=== PATIENT | male | born 1995 | race Caucasian/White ===

== ENCOUNTER 2020-06-20 12:47 | Inpatient (IN) | payer MEDICARE, MEDICAID ==
[~2020-06-20] VITALS: Ht 170.2 cm; Wt 64.7 kg
[2020-06-20] MEDS ORDERED: LEVE500T8 PO (14:45)
[2020-06-20 16:26] LABS: BASOPHILS % (AUTO) 0.6 % (0.0-2.0); EOSINOPHILS % (AUTO) 3.4 % (1.0-6.0); HEMATOCRIT 46.8 % (41-53); HEMOGLOBIN 16.2 g/dL (13.5-17.5); LYMPHOCYTES # (AUTO) 2.1 K/uL (1.0-4.8); LYMPHOCYTES % (AUTO) 26.8 % (22.0-44.0); MEAN CORPUSCULAR HEMOGLOBIN 32.2 pg (26.0-34.0); MEAN CORPUSCULAR HGB CONC 34.6 G/dL (31.0-37.0); MEAN CORPUSCULAR VOLUME 93 fL (80-100); MONOCYTES # (AUTO) 0.6 K/uL (0.1-1.0); MONOCYTES % (AUTO) 8.2 % (2.0-9.0); NEUTROPHILS # (AUTO) 4.8 K/uL (1.8-7.7); PLATELET COUNT (AUTO) 202 K/uL (150-450); RED BLOOD CELL COUNT(AUTO) 5.03 MIL/uL (4.50-5.90)
[2020-06-20 16:51] LABS: ANION GAP 4 mmol/L (8-16); CALCIUM, TOTAL 9.7 mg/dL (8.8-10.5); CARBON DIOXIDE 33 mmol/L (22-29); CHLORIDE 103 mmol/L (98-107); CREATININE 0.95 mg/dL (0.60-1.30); GLOMERULAR FILTR. RATE CALC > 60 mL/min (>60); GLUCOSE,RANDOM 90 mg/dL (70-110); POTASSIUM 3.9 mmol/L (3.5-5.1); SODIUM SERUM 140 mmol/L (136-145); UREA NITROGEN, BLOOD 13 mg/dL (7-18)
[2020-06-20 16:58] LABS: ALANINE AMINOTRANSFERASE 30 U/L (12-78); ALBUMIN 4.9 g/dL (3.4-5.0); ALKALINE PHOSPHATASE 66 U/L (46-116); ASPARTATE AMINOTRANSFERASE 25 U/L (15-37); TOTAL PROTEIN, SERUM 8.4 g/dL (6.4-8.2)
[2020-06-20 17:10] LABS: AMPHET/METH SCREEN,URINE NEGATIVE (NEGATIVE); BARBITURATE SCREEN, URINE NEGATIVE (NEGATIVE); BENZODIAZEPINES SCREEN,URINE NEGATIVE (NEGATIVE); CANNABINOID SCREEN,URINE NEGATIVE (NEGATIVE); COCAINE SCREEN,URINE NEGATIVE (NEGATIVE); METHADONE SCREEN, URINE NEGATIVE (NEGATIVE); OPIATE SCREEN,URINE NEGATIVE (NEGATIVE)
[2020-06-20 17:11] LABS: PHENCYCLIDINE SCREEN,URINE NEGATIVE (NEGATIVE)
[2020-06-20] MEDS ORDERED: HALOPERIDOL 5 MG TABLET PO PRN (19:30)
[2020-06-20] MEDS ORDERED: LORazepam 2 MG TABLET PO PRN (19:30)
[2020-06-20 22:34] VITALS: BP 111/71
[2020-06-21] MEDS ORDERED: BACITRACIN 28.4 GM OINTMENT TP PRN (07:45)
[2020-06-21] MEDS ORDERED: PETROLATUM,WHITE 28 GM JELLY TP PRN (07:45)
[2020-06-21] MEDS ORDERED: ALBUTEROL SULFATE HFA 90 MCG/PUFF 8 GM INHALER IH PRN (07:45)
[2020-06-21] MEDS ORDERED: MAG HYDROX/AL HYDROX/SIMETH ES 30 ML SUSPENSION UDCUP PO PRN (07:45)
[2020-06-21] MEDS ORDERED: IBUPROFEN 600 MG TABLET PO PRN (07:45)
[2020-06-21] MEDS ORDERED: ONDANSETRON HCL 4 MG TABLET PO PRN (07:45)
[2020-06-21] MEDS ORDERED: DOCUSATE SODIUM 100 MG CAPSULE PO PRN (07:45)
[2020-06-21] MEDS ORDERED: BENZOCAINE/MENTHOL LOZENGE MM PRN (07:45)
[2020-06-21] MEDS ORDERED: CloNIDine HCL 0.1 MG TABLET PO PRN (07:45)
[2020-06-21] MEDS ORDERED: MAGNESIUM HYDROXIDE SUSPENSION 30 ML UDCUP PO PRN (07:45)
[2020-06-21] MEDS ORDERED: LOPERAMIDE HCL 2 MG CAPSULE PO PRN (07:45)
[2020-06-21] MEDS ORDERED: OMEPRAZOLE 20 MG CAPSULE PO PRN (07:45)
[2020-06-21] MEDS ORDERED: ACETAMINOPHEN 325 MG TABLET PO PRN (07:45)
[2020-06-21 08:26] VITALS: BP 102/60
[2020-06-21] MEDS: LevETIRAcetam 500 MG TABLET PO SCH ×2 (08:47→16:28)
[2020-06-21 16:27] VITALS: BP 99/69
[2020-06-22] MEDS: LevETIRAcetam 500 MG TABLET PO SCH ×2 (08:29→16:14)
[2020-06-22] MEDS: QUEtiapine FUMARATE 25 MG TABLET PO SCH ×2 (08:29→16:14)
[2020-06-22 11:03] VITALS: BP 104/68
[2020-06-22 16:03] VITALS: BP 110/65
[2020-06-23] MEDS: LevETIRAcetam 500 MG TABLET PO SCH ×2 (08:23→17:10)
[2020-06-23] MEDS: QUEtiapine FUMARATE 25 MG TABLET PO SCH ×2 (08:24→17:10)
[2020-06-23 16:29] VITALS: BP 112/70
[2020-06-24 08:00] VITALS: BP 103/65
[2020-06-24] MEDS: QUEtiapine FUMARATE 25 MG TABLET PO SCH ×2 (08:18→17:28)
[2020-06-24] MEDS: LevETIRAcetam 500 MG TABLET PO SCH ×2 (08:18→17:28)
[2020-06-24 16:00] VITALS: BP 99/59
[2020-06-25] MEDS: LevETIRAcetam 500 MG TABLET PO SCH ×2 (09:10→16:27)
[2020-06-25] MEDS: QUEtiapine FUMARATE 25 MG TABLET PO SCH ×2 (09:10→16:28)
[2020-06-25 10:27] VITALS: BP 102/68
[2020-06-25 17:04] VITALS: BP 112/69
[2020-06-26] MEDS: QUEtiapine FUMARATE 25 MG TABLET PO SCH ×2 (08:29→16:12)
[2020-06-26] MEDS: DIVALPROEX SODIUM 500 MG DR TABLET PO SCH ×2 (08:29→16:12)
[2020-06-26] MEDS: LevETIRAcetam 500 MG TABLET PO SCH ×2 (08:29→16:12)
[2020-06-26 09:50] VITALS: BP 114/70
[2020-06-26 16:03] VITALS: BP 108/71
[2020-06-27 08:41] VITALS: BP 107/58
[2020-06-27] MEDS: LevETIRAcetam 500 MG TABLET PO SCH ×2 (09:39→16:00)
[2020-06-27] MEDS: DIVALPROEX SODIUM 500 MG DR TABLET PO SCH ×2 (09:39→16:00)
[2020-06-27] MEDS: QUEtiapine FUMARATE 25 MG TABLET PO SCH ×2 (09:40→16:00)
[2020-06-27 16:18] VITALS: BP 125/84
[2020-06-28] MEDS: DIVALPROEX SODIUM 500 MG DR TABLET PO SCH ×2 (07:57→16:40)
[2020-06-28] MEDS: LevETIRAcetam 500 MG TABLET PO SCH ×2 (07:57→16:40)
[2020-06-28] MEDS: QUEtiapine FUMARATE 25 MG TABLET PO SCH ×2 (07:57→16:40)
[2020-06-28 08:12] VITALS: BP 107/73
[2020-06-28 18:55] VITALS: BP 115/70
[2020-06-29] MEDS: QUEtiapine FUMARATE 25 MG TABLET PO SCH ×2 (08:10→16:21)
[2020-06-29] MEDS: DIVALPROEX SODIUM 500 MG DR TABLET PO SCH ×2 (08:10→16:21)
[2020-06-29] MEDS: LevETIRAcetam 500 MG TABLET PO SCH ×2 (08:10→16:21)
[2020-06-29 08:41] VITALS: BP 107/62
[2020-06-29 16:39] VITALS: BP 108/58
[2020-06-30] MEDS: QUEtiapine FUMARATE 25 MG TABLET PO SCH ×2 (08:00→16:11)
[2020-06-30] MEDS: DIVALPROEX SODIUM 500 MG DR TABLET PO SCH ×2 (08:00→16:11)
[2020-06-30] MEDS: LevETIRAcetam 500 MG TABLET PO SCH ×2 (08:00→16:11)
[2020-06-30 08:24] VITALS: BP 101/59
[2020-06-30 16:09] VITALS: BP 107/77
[2020-07-01 08:33] VITALS: BP 110/71
[2020-07-01] MEDS: LevETIRAcetam 500 MG TABLET PO SCH ×2 (09:15→16:26)
[2020-07-01] MEDS: QUEtiapine FUMARATE 25 MG TABLET PO SCH ×2 (09:15→16:26)
[2020-07-01] MEDS: DIVALPROEX SODIUM 500 MG DR TABLET PO SCH ×2 (09:15→16:25)
[2020-07-01 16:11] VITALS: BP 109/74
[2020-07-01] MEDS ORDERED: DIVA-112 PO (21:57)
[2020-07-01] MEDS ORDERED: QUET25TA PO (21:58)
[2020-07-02 08:28] VITALS: BP 103/63
[2020-07-02] MEDS: DIVALPROEX SODIUM 500 MG DR TABLET PO SCH (09:40)
[2020-07-02] MEDS: QUEtiapine FUMARATE 25 MG TABLET PO SCH (09:40)
[2020-07-02] MEDS: LevETIRAcetam 500 MG TABLET PO SCH (09:40)
[2020-07-02] MEDS ORDERED: LEVE500T53 PO (10:48)
== END 2020-07-02 14:12 | disposition home or self-care (01) | DRG 885 ==
LOC: EMS 12:48 → 3EX 19:57
PROVIDERS: ADMIT Psychiatry & Neurology Psychiatry; ATTEND Psychiatry & Neurology Psychiatry
DX: F25.9 Schizoaffective disorder, unspecified (principal); F84.0 Autistic disorder; F41.9 Anxiety disorder, unspecified; G40.909 Epilepsy, unspecified, not intractable, without status epilepticus; G47.00 Insomnia, unspecified; H54.8 Legal blindness, as defined in USA
CPT/HCPCS: G0378; G0480